=== PATIENT | male | born 1980 | race Caucasian/White ===

== ENCOUNTER 2020-12-13 07:42 | Emergency (ER) | payer BC ==
[~2020-12-13 07:42] MED LIST: IBUPROFEN200 M2 PO; TYLENOL 325MG325 MG PO
[2020-12-13 09:28] LABS: BASO # 0.01 (0.02-0.10); HEMATOCRIT 47.9 % (42.0-52.0); HEMOGLOBIN 16.1 g/dL (13.5-18.0); MEAN CELL VOLUME 94 fl (78-100); MEAN CORPUSCULAR HEMOGLOBIN 32 pg (27-31); MEAN CORPUSCULAR HGB CONC 34 g/dL (33-37); MONO # 0.49 (0.20-0.80); PLATELET COUNT 150 K/mm3 (130-400); RED BLOOD COUNT 5.11 M/mm3 (4.20-5.60); RED CELL DISTRIBUTION WIDTH 12.1 % (11.5-14.5); WHITE BLOOD COUNT 6.1 K/mm3 (4.8-10.8)
[2020-12-13 09:29] LABS: SODIUM 137 mmol/L (136-145)
[2020-12-13 09:30] LABS: CALCIUM 8.6 mg/dL (8.3-10.5)
[2020-12-13 09:31] LABS: GLUCOSE 116 mg/dL (75-110)
[2020-12-13 09:32] LABS: CARBON DIOXIDE 20 mmol/L (22-29)
[2020-12-13 09:33] LABS: TOTAL BILIRUBIN 0.2 mg/dL (0.2-1.2)
[2020-12-13 09:36] LABS: AST-SGOT 27 U/L (5-34)
[2020-12-13 09:37] LABS: ALT/SGPT 18 U/L (0-55)
[2020-12-13 09:38] LABS: LIPASE 18 U/L (8-78)
[2020-12-13 09:50] LABS: TROPONIN-I < 0.03 ng/mL (<0.030)
[2020-12-13 10:15] VITALS: BP 125/69
== END 2020-12-13 10:02 | disposition home or self-care (01) ==
LOC: ED 07:42
PROVIDERS: Family Medicine
DX: U07.1 COVID-19 (principal); F17.200 Nicotine dependence, unspecified, uncomplicated
CPT/HCPCS: J7030